=== PATIENT | female | born 1950 | race Caucasian/White ===

== ENCOUNTER → 2017-03-10 | Outpatient (CLI) | payer MEDICARE, OTHER ==
--- NOTE | ~2017-03-10 | CT4 ---
[facility] A Service of [facility] RADIOLOGY TEXT RESULTS PATIENT: SHAMA ACUNA LOCATION: [facility] : 46 UNIT #: [id number] AGE: [address]: Aden Pierre MD SEX: F ORDER DR: [id number] [facility]. [place], [place] [address] [id number] O MR#: [id number] [facility] #: [id number] NAME: SHAMA ACUNA : 1950 SEX: F STUDY DATE/TIME: 03/10/2017 UNIT: [facility] ROOM: STUDY DESCRIPTION: CT Abd and Pelv Wo Cont Attending Physician: Aden Pierre M.D. Ordering Physician: Aden Pierre M.D. Primary Care Physician: Aden Pierre M.D. MEDICAL IMAGING REPORT This report is preliminary unless electronic signature is present EXAM CT abdomen and pelvis without contrast 03/10/2017 12:26 hours HISTORY 66-year-old woman with history of diverticulitis, hypertension complaining of left-sided abdominal pain for [address] abdomen 07/15/2009 TECHNIQUE Helical noncontrasted images were obtained from the lung bases through the pubic symphysis without oral or intravenous contrast. Sagittal and coronal reconstructions were performed. Total exam DLP 1462 mGy-cm. The CT exam was performed with one or more of the following radiation dose reduction techniques: automatic exposure control, adjustment of mA and/or kV according to patient size, and iterative reconstruction. FINDINGS Images through the lung bases are clear. There are no effusions. The distal esophagus is normal. Noncontrasted images through the abdomen demonstrate a normal appearance to the liver, spleen, pancreas, gallbladder and bile ducts. The adrenal glands are normal. The kidneys demonstrate no mass, stone or obstruction. The abdominal aorta is normal in caliber with minimal atherosclerotic calcification present. The stomach is contracted and unopacified but does appear normal. There is no small bowel distension or small bowel wall thickening. The appendix [facility] A Service of [facility] RADIOLOGY TEXT RESULTS PATIENT: SHAMA ACUAN LOCATION: [facility] : 46 UNIT #: [id number] AGE: [address]: Aden Pierre MD SEX: F ORDER DR: is normal. The colon demonstrates scattered diverticula beginning at the splenic flexure of the colon continuing through the descending colon and the sigmoid colon. At the junction of the descending colon and sigmoid colon. There is mild wall thickening and mild linear injection of the adjacent fat suggesting acute inflammation. Findings suggest the presence of mild, acute diverticulitis without evidence of perforation or abscess. These findings are new from 07/15/2009. CT pelvis demonstrates a small postmenopausal uterus with calcification. There is no adnexal mass or pelvic free fluid. IMPRESSION 1. Again demonstrated are diffuse diverticular changes of the descending colon and sigmoid colon. At the junction of descending colon and sigmoid colon there is new wall thickening and linear stranding of the adjacent fat most consistent with mild acute diverticulitis without evidence of perforation or abscess. 2. No renal or ureteral calculi. 3. The gallbladder, bile ducts and pancreas are normal. Dictated by... Brie Reyna M.D. THIS IS AN ELECTRONICALLY VERIFIED REPORT Brie Reyna M.D. at 03/10/2017 2:29 PM LUIS/augusto TD: 03/10/2017 12:50 JOB #: [id number] MEDICAL IMAGING REPORT Page 1 of 1 COPY
== END | disposition home or self-care (01) ==
LOC: CCAT 11:54
DX: R10.9 Unspecified abdominal pain (principal)
CPT/HCPCS: 74176